=== PATIENT | female | born 1960 | race Caucasian/White ===

== ENCOUNTER 2017-01-28 11:36 | Emergency (ER) | payer OTHER ==
[~2017-01-28] VITALS: Ht 165.1 cm; Wt 76.7 kg
[2017-01-28] MEDS ORDERED: diphenhydrAMINE 50 MG/ML VIAL IVP ONE (12:45)
[2017-01-28] MEDS ORDERED: methylPREDNISolone SOD SUCC PF 125 MG/2 ML VIAL. IV ONE (12:45)
[2017-01-28] MEDS ORDERED: FAMOTIDINE 20 MG/2 ML VIAL IVP ONE (12:45)
--- NOTE | 2017-01-28 13:19 | ED.ADGEN ---
Past Medical History Past Medical History: High Cholesterol, Hypothyroid Past Surgical History: Appendectomy, Hysterectomy Alcohol Use: None Drug Use: None Adult General Chief Complaint Chief Complaint: ALLERGIC REACTION HPI HPI Patient is a 56 year old woman, who presents to the emergency department with a complaint of rash. Patient states that last week she was started on cephalosporin for a presumed sinus infection, she was also given prednisone. She states that she developed a rash, and was seen by her doctor ahead and increased dose of prednisone given along with Benadryl, states that the rash worsened, and then she then developed swelling of the lips which she was seen at [facility]. She was given Solu-Medrol, famotidine and Benadryl that time, and had resolution of symptoms. She states that she was given additional prednisone, Benadryl, clonidine, she has been taking. States that she woke up this morning and noted recurrence of the rash along her neck arms and chest. She denies any difficulty breathing or swallowing, any swelling lips or tongue, states her head does feel "itchy", denies any other complaints. No chest pain, no weakness, numbness or tingling, no nausea or vomiting or diarrhea. Patient denies any other exposures, is concerned that she is allergic to prednisone. Review of Systems Review of Systems Constitutional: Denies fever or chills. [] Eyes: Denies change in visual acuity. [] HENT: Denies nasal congestion or sore throat. [] Respiratory: Denies cough or shortness of breath. [] Cardiovascular: Denies chest pain or edema. [] GI: Denies abdominal pain, nausea, vomiting, bloody stools or diarrhea. [] : Denies dysuria. [] Musculoskeletal: Denies back pain or joint pain. [] Integument: Rash, urticaria. Neurologic: Denies headache, focal weakness or sensory changes. [] Endocrine: Denies polyuria or polydipsia. [] Lymphatic: Denies swollen glands. [] Psychiatric: Denies depression or anxiety. [] Current Medications Current Medications Current Medications Medications (Trade) Dose Ordered Sig/Louie Start Time Stop Time Status Last Admin Dose Admin Diphenhydramine HCl (Benadryl) 25 mg 1X ONCE 01/28/17 14:15 01/28/17 14:16 DC Famotidine (Pepcid) 20 mg 1X ONCE 01/28/17 12:45 01/28/17 12:46 DC 01/28/17 12:43 20 MG Methylprednisolone Sodium Succinate (SOLU-Medrol 125MG VIAL) 125 mg 1X ONCE 01/28/17 12:45 01/28/17 12:46 DC 01/28/17 12:43 125 MG Allergies Allergies Allergies Coded Allergies Type Severity Reaction Last Updated Verified Penicillins Allergy Severe 01/28/17 Yes Sulfa (Sulfonamide Antibiotics) Allergy Severe 01/28/17 Yes yellow dye Allergy Severe 01/28/17 Yes Physical Exam Physical Exam Constitutional: Well developed, well nourished, no acute distress, non-toxic appearance. [] HENT: Normocephalic, atraumatic, bilateral external ears normal, oropharynx moist, no oral exudates, nose normal. [] Eyes: PERRLA, EOMI, conjunctiva normal, no discharge. [] Neck: Normal range of motion, no tenderness, supple, no stridor. [] Cardiovascular:Heart rate regular rhythm, no murmur , S1, S2, rubs or gallops. [ ] Lungs & Thorax: Bilateral breath sounds clear to auscultation, no wheezing, rhonchi, rales. No chest crepitus or tenderness. [] Abdomen: Bowel sounds normal, soft, no tenderness, no rebound, rigidity, no guarding, no masses, no pulsatile masses. [] Skin: Warm, dry, no erythema, patient with urticaria noted on the neck and chest , forearms. Back: No tenderness, no CVA tenderness. [] Extremities: No tenderness, no cyanosis, no clubbing, ROM intact, no edema. [] Neurologic: Alert and oriented X 3, normal motor function, normal sensory function, no focal deficits noted. [] Psychologic: Affect normal, judgement normal, mood normal. [] Current Patient Data Vital Signs Vital Signs Date Time Temp Pulse Resp B/P (MAP) Pulse Ox O2 Delivery O2 Flow Rate FiO2 01/28/17 14:30 68 18 129/68 (88) 97 Room Air 01/28/17 11:40 98.5 98.5 EKG EKG Not indicated. [] Radiology/Procedures Radiology/Procedures Not indicated. [] Course & Med Decision Making Course & Med Decision Making Pertinent Labs and Imaging studies reviewed. (See chart for details) Patient with no evidence of angioedema, anaphylaxis, or other systemic issues. Isolated urticaria on the neck and forearms. I stated patient denies any other possible exposures. Did discuss with her that is containing prednisone be appropriate continuing to famotidine and Benadryl this time she is tolerating his medications previously without issue. She was given Solu-Medrol in the ED after discussion she states that previously this did resolve her issues, along with Benadryl and famotidine. Discussed the patient that this will likely not resolve immediately, she is to follow-up with her primary care provider as well and return to the ED if concerning symptoms develop. Due to her previous angioedema I will also prescribe a EpiPen for the patient, a lengthy discussion at bedside regarding concerning symptoms that would prompt use of the EpiPen, return to the ED emergently via EMS. Patient voiced understanding and agreement. On reevaluation, she is feeling better, I discussed with her discontinuing the prednisone, as his head is been shown to not be particularly effective with uric area, and it may potentially be causing issues as well. She is agreeable with this plan, as stated she is taken Benadryl and famotidine previously without issue will continue these medications as needed. As stated, we did discuss concerning symptoms that prompt return, importance of follow-up with her primary care provider, and referral to an lead care manager for additional testing. Patient discharged home in stable condition with family with improvement of her symptoms with plan as above. Dragon Disclaimer Dragon Disclaimer This electronic medical record was generated, in whole or in part, using a voice recognition dictation system. Departure Impression: Primary Impression: Urticaria Disposition: 01 HOME, SELF-CARE Condition: IMPROVED Scripts Epinephrine (EPIPEN 2-MONSTER) 0.3 Mg/0.3 Ml Auto.injct 0.3 MG IJ PRN 1X Y for ANAPHYLAXIS, #1 SYR 1 Refill Please administer EpiPen as directed if signs of anaphylaxis develop, immediately contact emergency services for transport to the closest emergency department. Prov: MIRIAN MALAGON DO 01/28/17 MIRIAN MALAGON DO Jan 28, 2017 13:19
[2017-01-28] MEDS ORDERED: diphenhydrAMINE HCL 25 MG CAPSULE PO ONE (14:15)
[2017-01-28 14:30] VITALS: BP 129/68
[2017-01-28] MEDS ORDERED: EPIPEN 2-P0.3 MG/0.3 IJ (14:53)
== END 2017-01-28 15:11 | disposition home or self-care (01) ==
LOC: ER 11:36
DX: L50.9 Urticaria, unspecified (principal); E78.00 Pure hypercholesterolemia, unspecified; E03.9 Hypothyroidism, unspecified; Z88.0 Allergy status to penicillin; Z88.2 Allergy status to sulfonamides
CPT/HCPCS: 96374; 96375; 99284; J1200; J2930; S0028

== ENCOUNTER → 2017-08-23 | Outpatient (CLI) | payer OTHER | END | disposition home or self-care (01) | LOC: KCIC MRI 12:38 | DX: M51.16 Intervertebral disc disorders with radiculopathy, lumbar region (principal); M48.061 Spinal stenosis, lumbar region without neurogenic claudication | CPT/HCPCS: 72148 ==

== ENCOUNTER → 2017-09-29 | Outpatient (CLI) | payer OTHER ==
[~2017-09-29] MED LIST: IOHEXOL 180 MG/ML 10 ML VIAL.; methylPREDNISolone ACETATE 40 MG/ML VIAL.; methylPREDNISolone ACETATE 80 MG/ML VIAL.
== END | disposition home or self-care (01) ==
LOC: PNCL 09:40
DX: M51.16 Intervertebral disc disorders with radiculopathy, lumbar region (principal); M19.90 Unspecified osteoarthritis, unspecified site; E03.9 Hypothyroidism, unspecified; Z90.710 Acquired absence of both cervix and uterus; Z87.39 Personal history of other diseases of the musculoskeletal system and connective tissue; Z88.0 Allergy status to penicillin; Z88.2 Allergy status to sulfonamides; Z91.041 Radiographic dye allergy status
CPT/HCPCS: 62323; J1030; J1040; Q9965

== ENCOUNTER → 2017-10-07 | Outpatient (CLI) | payer OTHER | LOC: PNCL 07:55 | DX: M51.16 Intervertebral disc disorders with radiculopathy, lumbar region (principal) | CPT/HCPCS: 62323; J1030; J1040; Q9965 ==

== ENCOUNTER → 2017-10-22 | Outpatient (CLI) | payer OTHER | LOC: PNCL 09:48 | DX: M51.16 Intervertebral disc disorders with radiculopathy, lumbar region (principal); Z91.041 Radiographic dye allergy status; Z88.0 Allergy status to penicillin; Z88.2 Allergy status to sulfonamides; Z88.8 Allergy status to other drugs, medicaments and biological substances; Z79.899 Other long term (current) drug therapy; L50.8 Other urticaria | CPT/HCPCS: 62323; J1030; J1040; Q9965 ==

== ENCOUNTER → 2018-05-09 | Outpatient (CLI) | payer OTHER ==
[~2018-05-09] MED LIST changes: +BUPR150T8 PO; +EPIPEN 2-P0.3 MG/0.3 IJ; +ESTR2TAB PO; -IOHEXOL 180 MG/ML 10 ML VIAL.; +LEVO50TA5 PO; +THYR60TA PO; -methylPREDNISolone ACETATE 40 MG/ML VIAL.; -methylPREDNISolone ACETATE 80 MG/ML VIAL.
--- NOTE | 2018-05-09 13:29 | KCIC ---
MR of the right shoulder Indication: Right shoulder pain and clavicle pain after 2 falls with arm extended. Technique: Standard multiplanar sequences are obtained. Findings: Artifact: Moderate motion degradation. Acromioclavicular joint: Mildly degenerative and hypertrophic. No separation. Rotator cuff: * Supraspinatus-infraspinatus tendon: Diffuse thickening and increased signal compatible with tendinosis. Partial-thickness undersurface tear of the posterior supraspinatus tendon and anterior infraspinatus tendon measures about 1 cm diameter. No evidence of full-thickness tear or retraction. * Subscapularis tendon: Tendinosis. * Muscle bulk: Within normal limits * Subacromial subdeltoid bursa: Trace effusion. Fluid: Trace glenohumeral effusion. Glenohumeral cartilage: No acute defect or advanced DJD. Labrum: Minimal fluid signal about the posteroinferior through posterosuperior labrum, could represent small joint fluid recess versus tiny para labral cysts. No convincing evidence of posterior and inferior labral tear. There is some minimal signal at the posterosuperior labrum compatible with a tear. Biceps tendon: Intact Bones: No lesion or acute fracture. Soft tissue: No acute findings. Impression: 1. Rotator cuff tendinosis. Partial-thickness undersurface tear of the supraspinatus-infraspinatus tendon confluence. 2. Posterosuperior labral tear. Electronically signed by: Reese Betancourt MD (05/09/2018 1:25 PM) [facility]
== END | disposition home or self-care (01) ==
LOC: KCIC MRI 12:07
PROVIDERS: ATTEND Physician Assistant Medical
DX: M75.101 Unspecified rotator cuff tear or rupture of right shoulder, not specified as traumatic (principal); E03.9 Hypothyroidism, unspecified; E78.00 Pure hypercholesterolemia, unspecified; Z87.39 Personal history of other diseases of the musculoskeletal system and connective tissue; Z90.710 Acquired absence of both cervix and uterus; Z88.0 Allergy status to penicillin; Z88.2 Allergy status to sulfonamides; Z88.8 Allergy status to other drugs, medicaments and biological substances
CPT/HCPCS: 73221

== ENCOUNTER 2018-12-06 06:49 | Day surgery (SDC) | payer OTHER ==
[~2018-12-06] VITALS: Ht 167.6 cm; Wt 87.1 kg
[~2018-12-06 06:49] MED LIST changes: +ACET500T68 PO; +CHOL2000 PO; +CLINDAMYCIN 900MG PREMIX 50 ML IV PRN; +EPINEPHrine VIAL 30 MG/30 ML VIAL ONE; +IBUP-1060 PO
[2018-12-06] MEDS ORDERED: LIDOCAINE 1% PF 2 ML VIAL. ID PRN (07:00)
[2018-12-06] MEDS ORDERED: HYDROmorphone 2 MG/ML VIAL IV PRN (07:00)
[2018-12-06] MEDS ORDERED: IV RINGERS,LACTATED 1000ML 1,000 ML IV SCH (07:00)
[2018-12-06] MEDS ORDERED: MORPHINE SULFATE 2 MG/ML VIAL. IV PRN (07:00)
[2018-12-06] MEDS ORDERED: fentaNYL PF VIAL 100 MCG/2 ML VIAL IV PRN ×2 (07:00)
[2018-12-06] MEDS ORDERED: PROCHLORPERAZINE 10 MG/2 ML VIAL. IV PRN (07:00)
[2018-12-06] MEDS ORDERED: ONDANSETRON PF 4 MG/2 ML VIAL. IV PRN (07:00)
[2018-12-06] MEDS ORDERED: EPINEPHrine 1 MG/ML VIAL ONE (07:14)
[2018-12-06] MEDS ORDERED: BUPIVACAINE MPF 0.75% 30 ML VIAL. ONE (07:14)
[2018-12-06] MEDS ORDERED: MIDAZOLAM HCL/PF 2 MG/2 ML VIAL. ONE (07:14)
[2018-12-06] MEDS ORDERED: BUPIVACAINE MPF 0.5% 30 ML VIAL. ONE (07:15)
[2018-12-06] MEDS ORDERED: LIDOCAINE 2% PF 5 ML VIAL. ONE (08:08)
[2018-12-06] MEDS ORDERED: PROPOFOL 20 ML IV ONE (08:08)
[2018-12-06] MEDS ORDERED: DEXAMETHASONE SOD PHOS 4 MG/ML VIAL ONE (08:08)
[2018-12-06] MEDS ORDERED: SEVOFLURANE > 120 MINUTES. IH ONE (09:03)
[2018-12-06] MEDS ORDERED: SEVOFLURANE 61 TO 120 MINUTES. IH ONE (09:03)
--- NOTE | 2018-12-06 09:53 | DISCH ---
DISCHARGE INSTRUCTIONS Condition on Discharge Condition on Discharge: Stable Activity After Discharge Activity Instructions for Disc: Other, see below (start with fine motor use of right arm, may progress with more motion and strengthening as tolerated) Weight Bearing Status after Di: As tolerated Diet after Discharge Diet after Discharge: Regular Wound Incision Care Wound/Incision Care: Ice to area for comfort, Change dressing (May remove dressing in 2 days may then shower no soaking until sutures removed) Community/Resources/Services Services at Discharge: PT EVALUATE & TREAT (may start active passive range of motion and strengthening as tolerated, sling only for comfort) Contacting the DR. after DC Call your doctor for: Concerns you may have Follow-Up Follow up with: Tracey 1 week PETRA ISBELL MD Dec 06, 2018 09:53
--- NOTE | 2018-12-06 10:20 | PDOC4 ---
Operative Note Operative Note Date of surgery: 12/06/2018 Preoperative diagnosis: Rotator cuff and SLAP tears Postoperative diagnosis: Partial thickness undersurface distal supraspinatus tear, type I SLAP tear, subacromial impingement Operative procedure: Right shoulder arthroscopy debridement of partial-thickness rotator cuff tear and type I SLAP tear with subacromial decompression Surgeon: Tracey Assist: Lukas Lerner Anesthesia: Gen. Estimated blood loss: 10 mL Complications: None Operative indications: Please see my pre-operative clinic note for detailed indications and note that she has had right shoulder pain and weakness unresponsive to nonoperative management and findings of an apparent full thickness rotator cuff tear and superior labral tear. I had gone over with her that we would evaluate this intraoperatively and address all pathology appropriately we went through risks benefits postoperative course including possibility of continued pain nonhealing infection nerve or blood vessel damage medical or other anesthetic complications among others the often extended period of rehabilitation necessary for shoulder surgery all her questions were answered she wishes to proceed with surgical evaluation and treatment. Operative text: Patient was identified procedure verified patient placed in the supine position on the operating table. After adequate amounts of general endotracheal anesthesia plus pre-existing scalene block were obtained she was placed decubitus right side up all bony promises were well-padded and the shoulder was examined under anesthesia found a full range of motion no instabi lity. The right shoulder was then prepped and draped in standard sterile fashion placed in the arthroscopic arm buchanan with a total of 10 pounds of traction and after timeout was performed patient procedure identified and verified a standard posterior portal established an anterior portal established using spinal needle localization and the shoulder joint was systematically examined. He was noted to have significant superior labral fraying which was trimmed back to stable tissue and overall the biceps anchor was noted to be intact without peelback lesion constituting a type I SLAP tear which was debrided adequately back to stable ti ssue. She also had perhaps a 30% through thickness undersurface rotator cuff tear which was debrided back to stable tissue but the remainder of the rotator cuff footprint appeared intact from the joint side no biceps fraying or subluxation was noted. Capsule ligament structures were noted to be normal in appearance. Subacromial space was then entered she was found to have some irri tation over the bursa which was cleared for visualization a large anterior subacromial spur. The underlying rotator cuff was noted to be intact to all degrees of internal/external rotation and the anterior acromial spur was removed to a type I acromion with cutting block technique without violating the acromioclavicular joint articulation. Bony fragments were removed with the arthr oscopic shaver and again rotator cuff was thoroughly examined from the bursal side and all degrees of rotation noted to have an intact insertion visually and to probing. Joint was drained of arthroscopic fluid portals closed with nylon suture she is returned to recovery room in stable condition having tolerated procedure well PETRA ISBELL MD Dec 06, 2018 10:20
[2018-12-06] MEDS ORDERED: SCOPOLAMINE 1.5MG PATCH. TD ONE ×2 (10:27→10:33)
[2018-12-06] MEDS ORDERED: oxyCODONE/APAP 7.5/325 1 TAB TABLET PO ONE (10:45)
[2018-12-06 11:45] VITALS: BP 131/61
== END 2018-12-06 12:19 | disposition home or self-care (01) ==
LOC: SURG 06:49
PROVIDERS: ATTEND Orthopaedic Surgery
DX: S43.431A Superior glenoid labrum lesion of right shoulder, initial encounter (principal); S46.011A Strain of muscle(s) and tendon(s) of the rotator cuff of right shoulder, initial encounter; X58.XXXA Exposure to other specified factors, initial encounter; Y93.89 Activity, other specified; Y92.89 Other specified places as the place of occurrence of the external cause; Y99.8 Other external cause status; M75.41 Impingement syndrome of right shoulder; Z88.0 Allergy status to penicillin; Z88.2 Allergy status to sulfonamides; Z91.041 Radiographic dye allergy status; Z80.0 Family history of malignant neoplasm of digestive organs; Z87.891 Personal history of nicotine dependence; Z79.899 Other long term (current) drug therapy; Z88.8 Allergy status to other drugs, medicaments and biological substances
CPT/HCPCS: 29823; A7015; C1713; J0171; J0780; J1100; J2001; J2250; J2704; J3490; J7120

== ENCOUNTER → 2019-08-15 | Outpatient (CLI) | payer OTHER ==
[~2019-08-15] MED LIST changes: -CLINDAMYCIN 900MG PREMIX 50 ML IV PRN; -EPINEPHrine VIAL 30 MG/30 ML VIAL ONE
--- NOTE | 2019-08-15 14:22 | KCIC ---
EXAM: MRI right shoulder DATE: 08/15/2019 11:45 AM COMPARISON: None INDICATION: Right shoulder pain TECHNIQUE: Multiplanar, multisequence MRI of the right shoulder was performed without contrast. FINDINGS: AC joint degenerative changes are seen with small inferior projecting osteophytes. Associated distal clavicular marrow edema likely reactive/degenerative. Type II acromion. No os acromiale. Moderate subacromial-subdeltoid bursal distention. Small right clavicle humeral joint effusion. There is a partial-thickness bursal sided tear of the anterior fibers of the supraspinatus tendon approximately 1 cm from the attachment measuring 9 mm in AP dimension, involving approximately 50% tendon thickness. There is a background of moderate supraspinatus tendinosis. Mild subscapularis tendinosis. Rotator cuff muscle bulk and signal is normal without fatty atrophy. Moderate edema within the posterior humeral head and greater tuberosity possibly contusion. No discrete associated fracture is identified. Intra-articular long head biceps tendon is normal in signal and morphology. Extra articular long head biceps tendon is seen within the bicipital groove. No discrete labral tear is seen. Survey evaluation of the articular cartilage, grossly preserved. IMPRESSION: 1. Partial-thickness (approximately 50% thickness) bursal sided tear involving the anterior fibers of the supraspinatus tendon measuring 9 mm in AP dimension, approximately 1 cm from the attachment. 2. Mild right glenohumeral joint effusion. Moderate subacromial-subdeltoid bursal distention. 3. AC joint degenerative change with associated marrow edema. Electronically signed by: Julio Strong MD (08/15/2019 2:19 PM) [facility]
== END | disposition home or self-care (01) ==
LOC: KCIC MRI 11:13
PROVIDERS: ATTEND Orthopaedic Surgery
DX: M75.101 Unspecified rotator cuff tear or rupture of right shoulder, not specified as traumatic (principal); M25.711 Osteophyte, right shoulder; M25.411 Effusion, right shoulder; Z98.890 Other specified postprocedural states
CPT/HCPCS: 73221

== ENCOUNTER → 2021-07-23 | Outpatient (CLI) | payer OTHER ==
[~2021-07-23] MED LIST changes: -ESTR2TAB PO; +ESTR2TAB3 PO
--- NOTE | 2021-07-23 14:32 | KCIC ---
Exam Date: 07/23/2021 11:00 AM MRI RIGHT LOWER EXTREMITY JOINT WITHOUT Indication: Reason: RIGHT KNEE PAIN / Spl. Instructions: / History: Medial right knee pain in recent months after a twisting injury.. TECHNIQUE: Routine multiplanar MR imaging of the knee was performed without contrast. COMPARISON: Radiographs from June 30, 2021 FINDINGS: The medial and lateral menisci are intact and within normal limits for age. The anterior cruciate ligament, posterior cruciate ligament, medial collateral ligament, and lateral collateral ligament complex are intact. Patellofemoral extensor mechanism and popliteus tendon are w ithin normal limits. Full-thickness chondral loss is seen along the patella apex with mild subchondral degenerative marrow signal. Partial thickness chondral defects are seen in the lateral and medial compartments. Small tricompartment osteophytes are noted. Bone marrow demonstrates benign signal on all sequences. No acute fracture is seen. Physiologic joint fluid is present. There is a small popliteal cyst. There is a 1.9 x 1.3 x 2.6 cm multiloculated ganglion posterior to the lateral femoral condyle. IMPRESSION: Mild degenerative changes with full-thickness chondral loss in the patellofemoral compartment. Presumed ganglion posterior to the lateral femoral condyle. Small popliteal cyst noted. Intact menisci and ligaments. No acute fracture. Electronically signed by: Sandro Novoa MD (07/23/2021 2:29 PM) [id number]
== END ==
LOC: KCIC MRI 10:41
PROVIDERS: ATTEND Physician Assistant
DX: S83.241A Other tear of medial meniscus, current injury, right knee, initial encounter (principal); M25.762 Osteophyte, left knee; M71.22 Synovial cyst of popliteal space [Baker], left knee; X58.XXXA Exposure to other specified factors, initial encounter; Y93.89 Activity, other specified; Y92.89 Other specified places as the place of occurrence of the external cause; Y99.8 Other external cause status
CPT/HCPCS: 73721